=== PATIENT | male | born 1940 | race Caucasian/White ===

== ENCOUNTER 2021-08-23 15:28 | Inpatient (IN) ==
[2021-08-23] MEDS ORDERED: Naloxone 0.4 MG/ML INJ IVP PRN (19:32)
[2021-08-23] MEDS ORDERED: *HR* HYDROcodone/Acet 5/325 mg TABLET PO PRN (19:32)
[2021-08-23] MEDS ORDERED: Acetaminophen 325 MG TABLET PO PRN (19:32)
[2021-08-23] MEDS ORDERED: Melatonin 3 MG TABLET PO PRN (19:32)
[2021-08-23] MEDS ORDERED: Dextrose 4 GM Chewable Tablets PO PRN ×2 (19:35)
[2021-08-23] MEDS ORDERED: D5% in Water 1,000 ML IVC PRN (19:35)
[2021-08-23] MEDS ORDERED: *HR* Dextrose 50 % in Water (Syg) 50 ML SYRINGE IVP PRN (19:35)
[2021-08-23] MEDS ORDERED: *HR* Heparin 5,000 UNIT/ML VIAL IVP PRN ×2 (21:36)
[2021-08-23] MEDS ORDERED: Saliva Stimulant 44.3ml BOTTLE PO PRN (21:42)
[2021-08-23] MEDS ORDERED: 0.9 % Sodium Chloride 1,000 ML IVC ONE (21:43)
[2021-08-23] MEDS ORDERED: Heparin 25,000UNIT/250ML 1/2NS 25,000 UNIT/250 ML IV.SOLN IVC SCH (21:45)
[2021-08-23 23:37] LABS: VBG HCO3 27 mEq/L (21-27); VBG PCO2 52 mmHg (41-51); VBG PH 7.32 pH Units (7.32-7.42); VBG PO2 33 mmHg (25-50)
[2021-08-23 23:57] LABS: Gamma Glutamyl Transpeptidase 103 Units/L (7-64); Salicylate < 2.5 mg/dL (15.0-30.0)
[2021-08-24 00:09] LABS: Carcinoembryonic Antigen 2.4 ng/mL (Less than 5.0)
[2021-08-24] MEDS: 0.9 % Sodium Chloride 1,000 ML IVC SCH ×2 (00:15→14:39)
[2021-08-24 00:32] LABS: Estimated Average Glucose 140 mg/dl; Hemoglobin A1C 6.5 %
[2021-08-24] MEDS: Heparin 25,000UNIT/250ML 1/2NS 25,000 UNIT/250 ML IV.SOLN IVC SCH (00:36)
[2021-08-24] MEDS ORDERED: Saliva Stimulant 44.3ml BOTTLE PO PRN (00:42)
[2021-08-24] MEDS ORDERED: Isovue-370 500 ML BOTTLE IVP ONE (00:43)
[2021-08-24] MEDS: Vancomycin 1,500 MG/265 ML IV.SOLN IVPB ONE ×2 (05:30→07:12)
[2021-08-24] MEDS ORDERED: Lactulose 200 GM, Sodium Chloride IRRigation 700 ML RC ONE ×2 (06:00→14:45)
[2021-08-24 07:22] LABS: Basophils % 0.1 %; Eosinophils # 0.1 K/mcL (0.0-0.6); Eosinophils % 0.5 %; Hematocrit 26.7 % (37.5-50.1); Hemoglobin 8.1 g/dL (12.9-16.9); Immature Granulocytes % 0.9 % (0-4); Immature Platelets 1.5 % (1.1-6.1); Lymphocytes # 1.5 K/mcL (0.6-4.6); Mean Corpuscular HGB Conc 30.3 g/dL (31.6-35.5); Mean Corpuscular Hemoglobin 28.3 pg (28.0-33.3); Mean Corpuscular Volume 93.4 fL (83.0-100.0); Mean Platelet Volume 9.2 fL (9.4-12.4); Monocytes % 7.2 %; Neutrophils # 11.2 K/mcL (1.6-8.9); Platelet Count 257 K/mcL (140-400); Red Blood Count 2.86 M/mcL (4.19-5.50); Red Cell Distribution Width 15.8 % (11.5-14.5); Segmented Neutrophils % 80.3 %; White Blood Count 13.9 K/mcL (4.3-11.1)
[2021-08-24 07:27] LABS: INR 1.5; Prothrombin Time 16.7 Seconds (9.4-12.1)
[2021-08-24 07:29] LABS: Activated Partial Thrombo Time 24.9 Seconds (26.0-36.0)
[2021-08-24 07:41] LABS: Alanine Aminotransferase 130 Units/L (7-52); Albumin 2.7 g/dL (3.5-5.7); Albumin/Globulin Ratio 0.8 (1.1-2.2); Alkaline Phosphatase 189 Units/L (34-104); Aspartate Amino Transferase 141 Units/L (13-39); BUN/Creatinine Ratio 25 (6-26); Bilirubin,Total 0.9 mg/dL (0.3-1.0); Blood Urea Nitrogen 21 mg/dL (8-23); Carbon Dioxide 26 mEq/L (23-29); Chloride 108 mEq/L (98-107); Globulin 3.4 g/dL (2.4-3.5); Glucose 98 mg/dL (70-105); Magnesium 2.3 mg/dL (1.6-2.6); Osmolality,Calculated 293 (280-300); Phosphorous 3.8 mg/dL (2.7-4.5); Sodium 140 mEq/L (136-145); Total Protein 6.1 g/dL (6.4-8.9); eGFR For African Americans > 60 (> 60); eGFR For Non-African Americans > 60 (> 60)
[2021-08-24 07:55] LABS: Thyroid Stimulating Hormone 2.569 mcIU/mL (0.340-5.600)
[2021-08-24 08:11] LABS: Hepatitis B Surface Antigen Nonreactive (Nonreactive)
[2021-08-24] MEDS: Chlorhexidine Rinse 15 ML MOUTHWASH MM SCH ×2 (08:11→21:32)
[2021-08-24] MEDS: Artificial Tears SOLN 15 ML BOTTLE BOTH EYES SCH ×3 (08:12→21:33)
[2021-08-24] MEDS: Pantoprazole 40 MG VIAL IVP SCH (08:12)
[2021-08-24 08:40] LABS: Hepatitis B Core IgM Nonreactive (Nonreactive)
[2021-08-24 08:41] LABS: Hepatitis C Virus Antibody Nonreactive (Nonreactive)
[2021-08-24 08:42] LABS: Hepatitis A Antibody IgM Nonreactive (Nonreactive)
[2021-08-24] MEDS ORDERED: 0.9 % Sodium Chloride 1,000 ML IVC ONE (08:46)
[2021-08-24 09:03] LABS: Prostate Specific Antigen 6.84 ng/mL (Less than 4.00)
[2021-08-24 09:16] LABS: Folate 9.5 ng/mL (3.0-16.0)
[2021-08-24 09:52] LABS: Hematocrit 26.1 % (37.5-50.1); Hemoglobin 7.9 g/dL (12.9-16.9)
[2021-08-24] MEDS: Piperacillin/Tazobactam 3.375 GM in 0.9 % Sodium Chloride Mini Bag 100 ML IVPB SCH (21:33)
[2021-08-25] MEDS: Heparin 25,000UNIT/250ML 1/2NS 25,000 UNIT/250 ML IV.SOLN IVC SCH ×2 (01:49→21:32)
[2021-08-25 01:52] LABS: Amphetamine Screen,Urine Negative ng/mL (Cutoff=1000); Barbiturate Screen,Urine Negative ng/mL (Cutoff=200); Benzodiazepines Screen,Urine Positive ng/mL (Cutoff=200); Cannabinoid Screen,Urine Negative ng/mL (Cutoff = 50); Cocaine Screen,Urine Negative ng/mL (Cutoff= 300); Opiate Screen,Urine Negative ng/mL (Cutoff=300); Phencyclidine Screen,Urine Negative ng/mL (Cutoff=25)
[2021-08-25] MEDS: Artificial Tears SOLN 15 ML BOTTLE BOTH EYES SCH ×4 (01:56→20:16)
[2021-08-25] MEDS: Piperacillin/Tazobactam 3.375 GM in 0.9 % Sodium Chloride Mini Bag 100 ML IVPB SCH ×4 (02:26→21:33)
[2021-08-25] MEDS: 0.9 % Sodium Chloride 1,000 ML IVC SCH ×2 (03:41→17:54)
[2021-08-25 06:14] LABS: Basophils % 0.2 %; Eosinophils # 0.1 K/mcL (0.0-0.6); Eosinophils % 0.7 %; Hematocrit 28.2 % (37.5-50.1); Hemoglobin 8.7 g/dL (12.9-16.9); Immature Granulocytes % 0.6 % (0-4); Lymphocytes # 1.2 K/mcL (0.6-4.6); Lymphocytes % 10.2 %; Mean Corpuscular HGB Conc 30.9 g/dL (31.6-35.5); Mean Corpuscular Hemoglobin 29.5 pg (28.0-33.3); Mean Corpuscular Volume 95.6 fL (83.0-100.0); Monocytes # 0.7 K/mcL (0.0-1.3); Monocytes % 5.7 %; Neutrophils # 9.9 K/mcL (1.6-8.9); Platelet Count 284 K/mcL (140-400); Red Blood Count 2.95 M/mcL (4.19-5.50); Red Cell Distribution Width 15.6 % (11.5-14.5); Segmented Neutrophils % 82.6 %
[2021-08-25 06:22] LABS: INR 1.5; Prothrombin Time 16.3 Seconds (9.4-12.1)
[2021-08-25 06:24] LABS: Alanine Aminotransferase 114 Units/L (7-52); Albumin 2.5 g/dL (3.5-5.7); Albumin/Globulin Ratio 0.7 (1.1-2.2); Alkaline Phosphatase 176 Units/L (34-104); Aspartate Amino Transferase 112 Units/L (13-39); BUN/Creatinine Ratio 18 (6-26); Bilirubin,Total 0.8 mg/dL (0.3-1.0); Blood Urea Nitrogen 15 mg/dL (8-23); Calcium 7.8 mg/dL (8.6-10.3); Carbon Dioxide 26 mEq/L (23-29); Chloride 112 mEq/L (98-107); Globulin 3.4 g/dL (2.4-3.5); Glucose 98 mg/dL (70-105); Magnesium 2.3 mg/dL (1.6-2.6); Osmolality,Calculated 297 (280-300); Phosphorous 3.1 mg/dL (2.7-4.5); Potassium 3.7 mEq/L (3.5-5.1); Sodium 143 mEq/L (136-145); Total Protein 5.9 g/dL (6.4-8.9); eGFR For African Americans > 60 (> 60); eGFR For Non-African Americans > 60 (> 60)
[2021-08-25] MEDS: Pantoprazole 40 MG VIAL IVP SCH (09:44)
[2021-08-25] MEDS: Chlorhexidine Rinse 15 ML MOUTHWASH MM SCH ×2 (09:44→20:15)
[2021-08-25] MEDS ORDERED: 0.9 % Sodium Chloride 1,000 ML IVC ONE (15:32)
[2021-08-25] MEDS ORDERED: Acetaminophen IV 1,000 MG/100 ML BAG IVPB ONE (15:45)
[2021-08-25] MEDS ORDERED: Isovue-370 500 ML BOTTLE IVP ONE (16:20)
[2021-08-25 16:50] LABS: Hematocrit 30.1 % (37.5-50.1); Hemoglobin 9.4 g/dL (12.9-16.9)
[2021-08-25] MEDS ORDERED: Iron Sucrose Complex 200 MG in 0.9 % Sodium Chloride 100 ML IVPB SCH (17:00)
[2021-08-25] MEDS ORDERED: 0.9 % Sodium Chloride 1,000 ML IV ONE (19:49)
[2021-08-25] MEDS ORDERED: Latanoprost 2.5 ML BOTTLE LEFT EYE SCH (21:00)
[2021-08-25 21:37] LABS: Heparin anti-factor XA UFH < 0.04 IU/mL (0.30-0.70)
[2021-08-25] MEDS ORDERED: *HR* Metoprolol 5 MG/5 ML VIAL IVP ONE (23:21)
[2021-08-26] MEDS ORDERED: 0.9 % Sodium Chloride 1,000 ML IV ONE (00:23)
[2021-08-26] MEDS: Artificial Tears SOLN 15 ML BOTTLE BOTH EYES SCH ×3 (00:33→17:04)
[2021-08-26 04:01] LABS: Basophils % 0.1 %; Eosinophils % 0.1 %; Hematocrit 24.6 % (37.5-50.1); Immature Granulocytes % 0.8 % (0-4); Lymphocytes # 1.4 K/mcL (0.6-4.6); Lymphocytes % 10.3 %; Mean Corpuscular HGB Conc 30.9 g/dL (31.6-35.5); Mean Corpuscular Hemoglobin 29.2 pg (28.0-33.3); Mean Corpuscular Volume 94.6 fL (83.0-100.0); Mean Platelet Volume 9.1 fL (9.4-12.4); Monocytes # 0.4 K/mcL (0.0-1.3); Monocytes % 3.1 %; Neutrophils # 11.8 K/mcL (1.6-8.9); Platelet Count 290 K/mcL (140-400); Red Cell Distribution Width 15.7 % (11.5-14.5); Segmented Neutrophils % 85.6 %; White Blood Count 13.8 K/mcL (4.3-11.1)
[2021-08-26 04:05] LABS: Hemoglobin 7.6 g/dL (12.9-16.9)
[2021-08-26] MEDS: 0.9 % Sodium Chloride 1,000 ML IVC SCH (04:26)
[2021-08-26] MEDS: Piperacillin/Tazobactam 3.375 GM in 0.9 % Sodium Chloride Mini Bag 100 ML IVPB SCH (05:23)
[2021-08-26] MEDS ORDERED: Vancomycin 1,250 MG/262.5 ML IV.SOLN IVPB SCH (06:00)
[2021-08-26] MEDS ORDERED: Ondansetron 4 MG/2 ML VIAL IVP PRN (07:57)
[2021-08-26] MEDS ORDERED: *HR* LORazepam 2 MG/ML VIAL IVP PRN (07:57)
[2021-08-26] MEDS ORDERED: Morphine Sulfate 2 MG/ML SYRINGE IVP PRN (07:58)
[2021-08-26] MEDS: Chlorhexidine Rinse 15 ML MOUTHWASH MM SCH (08:51)
[2021-08-26] MEDS: Pantoprazole 40 MG VIAL IVP SCH (08:52)
[2021-08-26] MEDS ORDERED: Levothyroxine Sodium 100 MCG VIAL IVP SCH (09:00)
[2021-08-26] MEDS ORDERED: Morphine Sulfate Oral CONC 10 MG/0.5 ML ORAL.SYG SL PRN (10:36)
[2021-08-26 14:59] LABS: Influenza A PCR Negative (Negative); Influenza B PCR Negative (Negative); Resp. Syncytial Virus PCR Negative (Negative)
[2021-08-26 15:00] LABS: SARS-CoV-2 by PCR (In House) Negative (Negative)
[2021-08-26 19:25] VITALS: BP 111/65; PULSE 98; TEMP 97.9; O2SAT 95
== END 2021-08-26 20:32 | DRG 871 ==
LOC: 3ANU → SUATTDRO 18:12
PROVIDERS: ADMIT Internal Medicine; ATTEND Internal Medicine
PROC: IRLIVER (2021-08-25 12:00)